=== PATIENT | female | born 1990 | race Caucasian/White ===

== ENCOUNTER 2021-11-23 14:42 | Emergency (ER) | payer MEDICAID, SELFPAY ==
[2021-11-23 14:43] VITALS: BP 90/43; PULSE 83; RESP 16; TEMP 36.6; O2SAT 98; BMI 29.0
[2021-11-23 14:51] LABS: Microscopic, Urine URINE MICROSCOPIC (MICROSCOPIC)
--- NOTE | 2021-11-23 15:02 | HMH.EDGENADL ---
ED Disposition Clinical Impression: Hemorrhagic cystitis Disposition: Home, Self-Care Condition on Discharge: Good Instructions: DI for Urinary Tract Infection (UTI) Additional Instructions: Additional instructions for URINARY TRACT INFECTION: Take antibiotic as prescribed. See your physician in 2-3 days for follow up and culture results. Return immediately if you have an uncontrollable fever greater than 102 degrees, severe back or abdominal pain, inability to urinate, or repetitive vomiting. Prescriptions: Nitrofurantoin Monohyd/M-Cryst [Macrobid 100 mg Capsule] 100 mg PO BID #14 cap Transmission Status: Pending to [id number] Referrals: Provider,Referral, [Referring] - - Critical Care Critical Care Time: No Attestation: On 11/23/21, the high probability of a clinically significant, sudden or life threatening deterioration of the following system(s) required my full and direct attention, intervention and personal management. The time I documented below is in addition to time spent performing reported procedures but includes the following listed in this critical care notation. Medical Decision Making - Ino Inquiry Pt receiving controlled substance: No Vital Signs: 11/23/21 14:43 11/23/21 15:33 Temperature 98 F Temperature Source Oral Pulse Rate 76 Pulse Rate [Radial] 83 Respiratory Rate 16 16 Blood Pressure 107/59 L Blood Pressure [Right Arm] 90/43 L Blood Pressure Mean 73 Blood Pressure Mean [Right Arm] 58 Blood Pressure Position [Right Arm] Sitting 02 Sat by Pulse Oximetry 98 100 Oxygen Delivery Method Room Air - Lab Data Lab Results 11/23/21 14:47: Urine Color Dk yellow, Urine Appearance Cloudy, Urine pH 5.0, Ur Specific [place] >= 1.030, Urine Protein 1+, Urine Glucose (UA) Negative, Urine Ketones Negative, Urine Blood 3+, Urine Nitrate Negative, Urine Bilirubin Negative, Urine Urobilinogen 0.2, Ur Leukocyte Esterase 1+ A, Urine RBC 10-20, Urine WBC 10-20, Ur Squamous Epith Cells 5-10, Urine Bacteria 3+ 11/23/21 14:47: Urine HCG, Qual Negative Orders (Tests/Meds): ED MEDICATIONS Discontinued Medications Generic Name Dose Route Start Last Admin Trade Name Freq PRN Reason Stop Dose Admin Nitrofurantoin Macrocrystals 100 mg 11/23/21 16:11 Nitrofurantoin 100mg Capsule PO 11/23/21 16:12 ONCE ONE ORDERS Category Date Time Status Urine Culture Stat Micro 11/23/21 14:47 Received General Adult HPI - General Chief complaint: Urogenital-Female Stated complaint: hematuria Time Seen by Provider: 11/23/21 15:02 Mode of Arrival: EMS Limitations: No Limitations Description of Symptoms (Recalled from ER Triage Doc. by RN): to ed per squad with c/o roxie flank pain radiating to rt and lt lower quads starting yesterday pt states noticed blood in her urine this am. pt denies any fever, chills, nausea, vomiting - History of Present Illness HPI narrative: 2-day history of diffuse lower back pain, and cannot hold my urine, today I peed blood . Has urinary urgency and frequency. No vomiting or fever. No history of kidney stones or other urinary tract conditions. She has had a previous uterine ablation, no menses since 2018. Prior bilateral salpingectomy. Prior sections. - Related Data Previous Rx's Medication Instructions Recorded Nitrofurantoin Monohyd/M-Cryst 100 mg PO BID #14 cap 11/23/21 [Macrobid 100 mg Capsule] Allergies Allergy/AdvReac Type Severity Reaction Status Date / Time Amoxicillin Allergy Unknown Uncoded 04/07/17 14:53 Erythromycin Allergy Unknown Uncoded 04/07/17 14:53 [facility] History - Hepatitis A Screen Attestation statement:: This patient has been screened for Hepatitis A risk factors. I have reviewed the patient's past medical history: Yes ROS Obtained: Yes Systems reviewed as appropriate & no additional complaints - Constitutional Constitutional: Denies fever(s) - Gastrointestinal
[2021-11-23 15:09] LABS: Appearance,Urine CLOUDY (Clear); Bilirubin,Urine Negative (Negative); Blood, Urine 3+ (Negative); Color,Urine DK YELLOW (Yellow); Glucose,Urine (UA) Negative (Negative); Ketones,Urine Negative (Negative); Leukocyte Esterase,Urine 1+ (Negative); Nitrate,Urine Negative (Negative); Protein,Urine 1+ (Negative); Specific Gravity, Urine >= 1.030 (1.005-1.030); Urobilinogen,Urine 0.2 EU/dl (0.2)
[2021-11-23 15:12] LABS: Urine Pregnancy, HCG Qual. Negative (Negative)
[2021-11-23 15:14] LABS: Bacteria,Urine 3+ /lpf
[2021-11-23 15:33] VITALS: BP 107/59; PULSE 76; RESP 16; O2SAT 100
--- NOTE | 2021-11-23 15:33 | PC.NURSE ---
cycled for new set of vitals
[2021-11-23 16:29] VITALS: BP 112/74; PULSE 74; RESP 16; TEMP 36.6; O2SAT 98
== END 2021-11-23 16:30 | disposition home or self-care (01) ==
PROVIDERS: Emergency Provider Emergency Medicine; PCP Family Medicine
DX: N30.91 Cystitis, unspecified with hematuria (principal)
CPT/HCPCS: 81001; 81025; 87086; 99283